=== PATIENT | male | born 1970 | race Caucasian/White ===

== ENCOUNTER 2018-05-26 15:14 | Emergency (ER) | payer SELFPAY ==
[2018-05-26] MEDS ORDERED: GABA-549 PO ×2 (15:33→16:08)
[2018-05-26] MEDS ORDERED: HYDR-385 PO (15:33)
[2018-05-26] MEDS ORDERED: HYDROmorphone* 1 MG/ML 1 MG/ML ML IM ONE (16:00)
[2018-05-26] MEDS ORDERED: HYDR-389 PO (16:08)
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
[2018-05-26 16:10] VITALS: BP 119/80
== END 2018-05-26 16:15 | disposition home or self-care (01) ==
LOC: ER 15:19
DX: M54.2 Cervicalgia (principal); R20.2 Paresthesia of skin
CPT/HCPCS: 96372; 99283; J1170